=== PATIENT | male | born 1980 | race American Indian/Alaskan Native ===

== ENCOUNTER 2017-07-07 09:52 | Outpatient (CLI) | payer BC ==
--- NOTE | 2017-07-07 12:14 | Ultrasound Report ---
ULTRASOUND ABDOMEN COMPLETE: Technique: Transabdominal ultrasound with color Doppler interrogation. History: Ureterolithiasis. Findings: The liver is normal size, contour and echotexture. The gallbladder dimensions are within normal limits without intraluminal stone, wall thickening, or pericholecystic fluid. 5 mm gallbladder polyp is noted near the neck of the gallbladder. The CBD is normal caliber. The visualized portions of the pancreas including the head and proximal body are within normal limits. The kidneys demonstrate no hydronephrosis or mass. No nephrolithiasis is visualized. Cortical thickness and echogenicity are within normal limits bilaterally. The spleen and aorta are within normal limits. No aneurysmal dilatation is noted. No ascites. The bladder is unremarkable. IMPRESSION: Small gallbladder polyp, otherwise, unremarkable exam of the abdomen. No nephrolithiasis or hydronephrosis is appreciated.
== END 2017-07-07 09:53 | disposition home or self-care (01) ==
LOC: US 09:52
PROVIDERS: ATTEND Internal Medicine
DX: N20.1 Calculus of ureter (principal); K82.4 Cholesterolosis of gallbladder
CPT/HCPCS: 76700